=== PATIENT | male | born 1955 | race Caucasian/White ===

== ENCOUNTER 2019-02-09 14:18 | Inpatient (IN) | payer MEDICARE, MEDICAID ==
[~2019-02-09] VITALS: Ht 165.1 cm; Wt 83.0 kg
--- NOTE | 2019-02-09 14:22 | Emergency Room Report ---
History of Present Illness General Chief Complaint: Diarrhea Source: Patient Present Illness HPI Patient is a 64-year-old male brought in by EMS after increased abdominal distention as well as diarrhea. Patient reports having increased watery diarrhea with associated nausea. Patient had recently finished a course of antibiotics approximately 9 days ago. He reports having associated urgency with stooling without evident abdominal pain. Patient had previously been staying in a rehab facility. He has chronic neuropathy due to a cervical disc disease. Patient had been unable to take his diuretics for approximately1 1/2 weeks. He denies any current shortness of breath. He had prior history of multiple bypass surgeries as well as coronary artery disease. He was noted to have bilateral upper extremity and lower extremity numbness and weakness chronically Allergies: Coded Allergies: IBUPROFEN (Verified Allergy, Unknown, 02/09/19) Patient History Past Medical History: see triage record Reviewed Nursing Documentation: PMH: Agreed; PSxH: Agreed Nursing Documentation-PMH Past Medical History: No History, Except For Hx Cardiac Problems: Yes - IA, stents high cholesterol Hx Hypertension: Yes Hx Diabetes: Yes Review of Systems Constitutional: Reports: weakness Gastrointestinal: Reports: diarrhea, nausea Musculoskeletal: Reports: joint pain, muscle pain, muscle stiffness Skin: Reports: rash, dryness Neurological: Reports: numbness, paresthesia Endocrine: Reports: increased thirst Allergic: Reports: no symptoms Physical Exam Vital Signs Date Time Temp Pulse Resp B/P (MAP) Pulse Ox O2 Delivery O2 Flow Rate FiO2 02/09/19 13:57 98.4 72 17 125/67 (86) 98 Room Air General Appearance: alert, obese, Chronically Ill Head: normocephalic ENT: hearing grossly normal, normal pharynx Neck: limited range of motion, other - kyphotic Respiratory: chest non-tender, lungs clear, normal breath sounds, no respiratory distress, other - sternotomy scar Cardiovascular #1: normal peripheral pulses, regular rate, rhythm, edema - trace edema Gastrointestinal: normal inspection, soft Musculoskeletal: other - slight muscular atrophy to bilateral hands Neurologic: alert, oriented x3, responsive, motor weakness - bilateral upper extremity weakness Psychiatric: normal inspection Skin: other - healing ulcers to lower extremities Medical Decision Making Diagnostic Impression: Primary Impression: Diarrhea Additional Impressions: Dehydration Generalized weakness Diabetes CHF (congestive heart failure) Leukocytosis ER Course Patient presented for diarrhea. Differential diagnosis include was not limited to C. difficile colitis, gastroenteritis, GI bleed among others. Because of complexity of patient's case laboratory testing and imaging studies were ordered.Patient's laboratory testing was notable for elevated white blood count as well as mildly elevated BNP. Patient's BUN and creatinine was also noted to be somewhat elevated. Patient started on gentle IV hydration due to prior history of congestive heart failure. Patient was given p.o. Flagyl due to recent antibiotic use and elevated white blood count.I did attempt to contact patient's covering hospital group for possible transfer to [facility] however they do not respond. Patient was discussed with Dr. Cong Gifford for inpatient management due to panel physician Labs Test 02/09/19 14:45 White Blood Count 14.4 K/UL (4.8-10.8) Red Blood Count 5.69 M/UL (4.70-6.10) Hemoglobin 14.2 G/DL (14.2-18.0) Hematocrit 44.9 % (42.0-52.0) Mean Corpuscular Volume 79 FL (80-99) Mean Corpuscular Hemoglobin 24.9 PG (27.0-31.0) Mean Corpuscular Hemoglobin Concent 31.6 G/DL (32.0-36.0) Red Cell Distribution Width 18.3 % (11.6-14.8) Platelet Count 262 K/UL (150-450) Mean Platelet Volume 7.0 FL (6.5-10.1) Neutrophils (%) (Auto) % (45.0-75.0) Lymphocytes (%) (Auto) % (20.0-45.0) Monocytes (%) (Auto) % (1.0-10.0) Eosinophils (%) (Auto) % (0.0-3.0) Basophils (%) (Auto) % (0.0-2.0) Sodium Level 139 MMOL/L (136-145) Potassium Level 4.0 MMOL/L (3.5-5.1) Chloride Level 104 MMOL/L (98-107) Carbon Dioxide Level 25 MMOL/L (21-32) Anion Gap 10 mmol/L (5-15) Blood Urea Nitrogen 32 mg/dL (7-18) Creatinine 1.3 MG/DL (0.55-1.30) Estimat Glomerular Filtration Rate 55.2 mL/min (>60) Glucose Level 174 MG/DL (74-106) Calcium Level 9.4 MG/DL (8.5-10.1) Total Bilirubin 0.6 MG/DL (0.2-1.0) Aspartate Amino Transf (AST/SGOT) 37 U/L (15-37) Alanine Aminotransferase (ALT/SGPT) 48 U/L (12-78) Alkaline Phosphatase 167 U/L (46-116) Troponin I 0.001 ng/mL (0.000-0.056) Pro-B-Type Natriuretic Peptide 1788 pg/mL (0-125) Total Protein 7.8 G/DL (6.4-8.2) Albumin 3.2 G/DL (3.4-5.0) Globulin 4.6 g/dL Albumin/Globulin Ratio 0.7 (1.0-2.7) Lipase 291 U/L (73-393) Thyroid Stimulating Hormone (TSH) 0.725 uiU/mL (0.358-3.740) Last Vital Signs Date Time Temp Pulse Resp B/P (MAP) Pulse Ox O2 Delivery O2 Flow Rate FiO2 02/09/19 13:57 98.4 72 17 125/67 (86) 98 Room Air Status: improved Disposition: ADMITTED INPATIENT Condition: Stable Omar Paiz MD Feb 09, 2019 14:22
--- NOTE | 2019-02-09 14:25 | NUR ---
ED Nurse Note: pt brought in to ER by ambulance from home due to abdominal discomfort. pt emphasized it is not abdominal pain, but abdominal discomfort. pt reported that pt has N/D but no vomiting. pt aao x4 and non-ambulatory due to weakness on extremities. pt is on gown and library monitor.
[2019-02-09 14:53] LABS: HEMATOCRIT 44.9 % (42.0-52.0); HEMOGLOBIN 14.2 G/DL (14.2-18.0); MEAN CORPUSCULAR VOLUME 79 FL (80-99); PLATELET COUNT 262 K/UL (150-450); RED BLOOD COUNT 5.69 M/UL (4.70-6.10); RED CELL DISTRIBUTION WIDTH 18.3 % (11.6-14.8); WHITE BLOOD COUNT 14.4 K/UL (4.8-10.8)
[2019-02-09] MEDS ORDERED: metroNIDAZOLE 500mg tab ORAL ONE (15:00)
[2019-02-09 15:08] LABS: ANION GAP 10 mmol/L (5-15); BLOOD UREA NITROGEN 32 mg/dL (7-18); CALCIUM 9.4 MG/DL (8.5-10.1); CARBON DIOXIDE 25 MMOL/L (21-32); CHLORIDE 104 MMOL/L (98-107); CREATININE 1.3 MG/DL (0.55-1.30); SODIUM 139 MMOL/L (136-145)
[2019-02-09 15:11] VITALS: BP 125/67
--- NOTE | 2019-02-09 15:16 | NUR ---
HAND-OFF: Report given to DELLA Oconnor. stool and urine need to be collected.
--- NOTE | 2019-02-09 15:17 | NUR ---
ED Nurse Note: received report from Prince and assumed care, pt vss, nsr on monitoring manager, no sx resp distress, pt states he is unable to pee and doesn't have to use bathroom, pt advised to notify staff if need to go bathroom for urine/stool sample.
[2019-02-09 15:21] LABS: ALANINE AMINOTRANSFERASE 48 U/L (12-78); ALBUMIN 3.2 G/DL (3.4-5.0); ALBUMIN/GLOBULIN RATIO 0.7 (1.0-2.7); ALKALINE PHOSPHATASE 167 U/L (46-116); ASPARTATE AMINO TRANSFERASE 37 U/L (15-37); BILIRUBIN,TOTAL 0.6 MG/DL (0.2-1.0)
[2019-02-09] MEDS ORDERED: NS 250 ML IVPB ONE (15:30)
[2019-02-09] MEDS ORDERED: LIPITOR40 MG ORAL (15:36)
[2019-02-09] MEDS ORDERED: FUROSEMIDE40 MG ORAL (15:36)
[2019-02-09] MEDS ORDERED: HYDRALAZINE HCL25 M1 ORAL (15:36)
[2019-02-09] MEDS ORDERED: AMIODARONE HCL400 M1 ORAL (15:36)
[2019-02-09] MEDS ORDERED: CLONAZEPAM0.5 M1 PO (15:36)
[2019-02-09] MEDS ORDERED: LOSARTAN POTASS50 MG ORAL (15:36)
[2019-02-09] MEDS ORDERED: ASPIRIN81 MG ORAL (15:36)
[2019-02-09] MEDS ORDERED: MUCINEX100 MG PO (15:36)
[2019-02-09] MEDS ORDERED: BUPROPION XL300 MG ORAL (15:36)
--- NOTE | 2019-02-09 15:50 | NUR ---
ED Nurse Note: care endorsed to Alison Morrison.
--- NOTE | 2019-02-09 15:51 | NUR ---
ED Nurse Note: pt was assisted to sitting position for urination but pt was unable to provide urine. pt refused catheterization. pt stated "I have had diarrhea for last few days. I must be so dehydrated. I cannot pee or poop now."
[2019-02-09] MEDS ORDERED: LEXAPRO10 MG ORAL (15:56)
[2019-02-09] MEDS ORDERED: LIDOCAINE700 M1 TP (15:56)
[2019-02-09] MEDS ORDERED: regular insulin (15:56)
[2019-02-09] MEDS ORDERED: LOPRESSOR HCT1 EAC3 ORAL (15:56)
[2019-02-09] MEDS ORDERED: MELATONIN1 M1 SL (15:56)
[2019-02-09 16:11] VITALS: BP 134/74
--- NOTE | 2019-02-09 17:39 | NUR ---
ED Nurse Note: obtained urine and sent to the lab.
[2019-02-09 17:53] LABS: BILIRUBIN, URINE 1+ (NEGATIVE); GLUCOSE, URINE (UA) NEGATIVE (NEGATIVE); KETONES,URINE NEGATIVE (NEGATIVE); LEUKOCYTE ESTERASE ,URINE 1+ (NEGATIVE); NITRITE,URINE NEGATIVE (NEGATIVE); PH,URINE 5 (4.5-8.0); PROTEIN,URINE 3+ (NEGATIVE); UROBILINOGEN,URINE NORMAL MG/DL (0.0-1.0)
[2019-02-09 17:54] LABS: APPEARANCE,URINE SLIGHTLY CLOUDY; COLOR,URINE YELLOW
[2019-02-09 18:11] VITALS: BP 131/60
--- NOTE | 2019-02-09 19:26 | NUR ---
ED Nurse Note: report given to DELLA Dsouza
--- NOTE | 2019-02-09 19:30 | NUR ---
ED Nurse Note: CARE ENDORSED TO DELLA ALLEN
--- NOTE | 2019-02-09 19:30 | NUR ---
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
--- NOTE | 2019-02-09 19:31 | NUR ---
NURSE NOTES: Received report from DELLA Morrison.PAtient
--- NOTE | 2019-02-09 19:31 | NUR ---
NURSE NOTES: Patient stable,A&Ox4,agitated,tolerated r/air well,no c/o pain,no respiratory distress noted,SR on telemetry monitor,BS active in all quadrants,IV asymptomatic,intact on R AC 20 G SL,belongings list signed,will continue to monitor pt.
[2019-02-09 20:00] VITALS: BP 122/82
--- NOTE | 2019-02-09 20:30 | NUR ---
NURSE NOTES: Pt refused taking pictures of diabetic wound on bilateral legs,refused any labs and test to schedule for tomorrow.Charge nurse aware.
[2019-02-09] MEDS: HydrALAZINE 25mg tab ORAL SCH (22:00)
[2019-02-09] MEDS: metroNIDAZOLE 500mg tab ORAL SCH (22:45)
[2019-02-09] MEDS: Atorvastatin 20mg tab ORAL SCH (22:46)
[2019-02-09] MEDS: Levemir Flexpen SUBQ SCH (22:48)
[2019-02-10] VITALS: BP 129/66
[2019-02-10] MEDS: Acetaminophen 500mg (ES) tab ORAL PRN (00:20)
[2019-02-10 04:00] VITALS: BP 114/60
[2019-02-10] MEDS: NovoLOG Insulin Flexpen SUBQ SCH ×4 (05:59→20:57)
[2019-02-10] MEDS: metroNIDAZOLE 500mg tab ORAL SCH ×3 (06:00→21:08)
--- NOTE | 2019-02-10 06:26 | NUR ---
NURSE NOTES: BS 69,patient ate crackers,with orange juice and chocolate pudding.Will recheck BS again in 15 minutes
[2019-02-10] MEDS ORDERED: NovoLOG Insulin Flexpen SUBQ SCH ×2 (06:30)
--- NOTE | 2019-02-10 06:43 | NUR ---
NURSE NOTES: Patient's BS 99,patient stable,taking nap.
[2019-02-10 07:00] LABS: BASOPHILS % (AUTO) 0.6 % (0.0-2.0); EOSINOPHILS % (AUTO) 5.6 % (0.0-3.0); HEMATOCRIT 37.7 % (42.0-52.0); HEMOGLOBIN 12.1 G/DL (14.2-18.0); LYMPHOCYTES % (AUTO) 13.4 % (20.0-45.0); MEAN CORPUSCULAR VOLUME 78 FL (80-99); MONOCYTES % (AUTO) 8.3 % (1.0-10.0); PLATELET COUNT 241 K/UL (150-450); RED BLOOD COUNT 4.82 M/UL (4.70-6.10); RED CELL DISTRIBUTION WIDTH 17.7 % (11.6-14.8); WHITE BLOOD COUNT 9.4 K/UL (4.8-10.8)
--- NOTE | 2019-02-10 07:00 | NUR ---
NURSE NOTES: Received report from DELLA Sheffield. Pt in bed, awake, resting, no complaints of pain, no apparent distress noted, bed in lowest position, call light within reach, discussed plan of care with pt. 0715: Dr. Gifford to see pt, RN recommended probiotic for pt to Dr. Gifford as pt has been taking antibiotics x9 days according to ED note and was having diarrhea at home. Dr Gifford stated he will order.
--- NOTE | 2019-02-10 07:11 | NUR ---
HAND-OFF: Report given to DELLA Tejada.Patient stable,sleeping.
[2019-02-10 07:18] LABS: ALANINE AMINOTRANSFERASE 38 U/L (12-78); ALBUMIN 2.8 G/DL (3.4-5.0); ALBUMIN/GLOBULIN RATIO 0.7 (1.0-2.7); ALKALINE PHOSPHATASE 145 U/L (46-116); ANION GAP 8 mmol/L (5-15); ASPARTATE AMINO TRANSFERASE 30 U/L (15-37); BILIRUBIN,TOTAL 0.6 MG/DL (0.2-1.0); BLOOD UREA NITROGEN 32 mg/dL (7-18); CALCIUM 8.9 MG/DL (8.5-10.1); CARBON DIOXIDE 25 MMOL/L (21-32); CHLORIDE 104 MMOL/L (98-107); CREATININE 1.4 MG/DL (0.55-1.30); POTASSIUM 3.5 MMOL/L (3.5-5.1); SODIUM 137 MMOL/L (136-145)
[2019-02-10 08:00] VITALS: BP 127/62
[2019-02-10] MEDS: Amiodarone 200mg tab ORAL SCH ×2 (08:10→20:59)
[2019-02-10] MEDS: Furosemide 40mg tab ORAL SCH (08:11)
[2019-02-10] MEDS: Aspirin Baby 81mg ORAL SCH (08:12)
[2019-02-10] MEDS: Losartan 50mg tab ORAL SCH (08:14)
[2019-02-10] MEDS: Heparin 5000 units/ml inj SUBQ SCH ×2 (08:15→20:57)
[2019-02-10 12:00] VITALS: BP 112/55
[2019-02-10] MEDS: HydrALAZINE 25mg tab ORAL SCH ×2 (13:08→21:09)
--- NOTE | 2019-02-10 15:15 | History and Physical Report ---
DATE OF ADMISSION: 02/09/2019 CHIEF COMPLAINT: Diarrhea. HISTORY OF PRESENT ILLNESS: The patient is a 64-year-old male. He has a history of cervical radiculopathy, ischemic cardiomyopathy, status post CABG and stent, hypertension, hyperlipidemia, diabetic neuropathy, and diabetes. He presented from home with complaints of one day of severe diarrhea. According to the patient, he was well until the day of admission when he had multiple episodes of protracted watery diarrhea. Now, he was recently hospitalized at a rehabilitation center. He was on antibiotics for "infection" these were discontinued upon his discharge. He states he was initially told that he needed a complete two weeks of antibiotics, but he only had finished four and today states that the antibiotics were discontinued upon his release. Denies any fevers or chills. He has had no chest pain or shortness of breath. On evaluation in the emergency room, the patient was noted to have white count of 14,000, hemoglobin 14, hematocrit of 44. Natriuretic peptide level is slightly elevated at 1700. Urine had 5-10 wbc's. PAST MEDICAL HISTORY: As above. PAST SURGICAL HISTORY: As above. CURRENT MEDICATIONS: Reconciled and reviewed. ALLERGIES: Include ibuprofen and Prilosec. FAMILY HISTORY: Significant for heart disease. SOCIAL HISTORY: The patient is a smoker. No alcohol. No drugs. REVIEW OF SYSTEMS: GENERAL: No fevers or chills. HEENT: No headaches or visual changes. CARDIOPULMONARY: No chest pain or shortness of breath. GASTROINTESTINAL: Mild nausea. No vomiting. Positive diarrhea. No bright red blood per rectum. No melena or hematemesis. GENITOURINARY: No urgency or frequency. MUSCULOSKELETAL: No joint pain or swelling. NEUROLOGIC: No evidence of seizures. PHYSICAL EXAMINATION: VITAL SIGNS: Temperature 98 degrees, pulse 70, respirations 16, blood pressure 129/66. GENERAL: The patient is well developed, alert and oriented x4. NECK: Supple. HEART: Regular rate and rhythm. LUNGS: Clear. ABDOMEN: Soft, nontender, nondistended. EXTREMITIES: Without clubbing, cyanosis, or edema. LABORATORY DATA: UA showed 5-10 wbc's. White count was 14,000, hemoglobin 14, hematocrit 44, platelets of 262. Sodium 139, potassium was 4, chloride 104, bicarb 25, BUN 32, creatinine was 1.3. ASSESSMENT: This is a pleasant male with history of diabetes, hypertension, ischemic cardiomyopathy, admitted with diarrhea suspect gastroenteritis, possibly food poisoning, doubt C. diff. PLAN: Continue oral Flagyl. Await C. diff results from stool samples. If the patient has tolerates p.o., he has had no further diarrhea, he likely can be discharged home with symptomatic treatment for diarrhea. Plan and care has been discussed with the patient. He is in agreement. Cong Gifford M.D. DR: VON JOB#: [id number] CC:
[2019-02-10 16:00] VITALS: BP 104/47
--- NOTE | 2019-02-10 19:30 | NUR ---
NURSE NOTES: Received report from DELLA Suarez. Patient in bed alert and oriented able to make needs known. No complaints of pain at this time. No distress noted. Will continue to monitor.
--- NOTE | 2019-02-10 19:43 | NUR ---
HAND-OFF: Report given to DELLA Nye.
[2019-02-10 20:00] VITALS: BP 129/64
[2019-02-10] MEDS ORDERED: MUCINEX600 MG PO (20:38)
[2019-02-10] MEDS ORDERED: ATORVASTATIN CA20 MG ORAL (20:38)
[2019-02-10] MEDS ORDERED: ESCITALOPRAM OX20 MG ORAL (20:38)
[2019-02-10] MEDS ORDERED: ACETAMINOPHEN500 M3 ORAL (20:44)
[2019-02-10] MEDS ORDERED: METOPROLOL SUCC50 MG ORAL (20:44)
[2019-02-10] MEDS ORDERED: MUPIROCIN22 GM TOPIC (20:44)
[2019-02-10] MEDS ORDERED: BACLOFEN10 MG ORAL (20:44)
[2019-02-10] MEDS ORDERED: INSULIN LI100 UNIT/2 SQ (20:46)
[2019-02-10] MEDS: Atorvastatin 20mg tab ORAL SCH (20:56)
[2019-02-10] MEDS: Levemir Flexpen SUBQ SCH (20:58)
[2019-02-11] VITALS: BP 138/64
[2019-02-11 04:00] VITALS: BP 120/64
[2019-02-11] MEDS: metroNIDAZOLE 500mg tab ORAL SCH ×3 (05:22→21:44)
[2019-02-11] MEDS: HydrALAZINE 25mg tab ORAL SCH ×3 (05:22→22:14)
[2019-02-11] MEDS: NovoLOG Insulin Flexpen SUBQ SCH ×4 (05:22→21:47)
--- NOTE | 2019-02-11 07:12 | NUR ---
HAND-OFF: Report given to DELLA Cruz. Patient stable at hand off.
[2019-02-11 08:00] VITALS: BP 130/68
--- NOTE | 2019-02-11 08:02 | NUR ---
NURSE NOTES: Patient was awake and sitting at the chair, eating his breakfast. AxO 4. No s/s of distress, stated not having any pain. He's comfortable. Walker is next to him, call light within reach. Recommend him to call me if needed to ambulate. Right AC 18 SL is patent, no sign of redness or tenderness.
[2019-02-11] MEDS: Losartan 50mg tab ORAL SCH (09:37)
[2019-02-11] MEDS: Aspirin Baby 81mg ORAL SCH (09:37)
[2019-02-11] MEDS: Furosemide 40mg tab ORAL SCH (09:38)
[2019-02-11] MEDS: Heparin 5000 units/ml inj SUBQ SCH ×3 (09:40→21:46)
[2019-02-11] MEDS: Amiodarone 200mg tab ORAL SCH ×2 (09:50→21:44)
[2019-02-11 12:00] VITALS: BP 124/56
--- NOTE | 2019-02-11 12:59 | General Progress Note ---
Assessment/Plan Problem List: (1) Generalized weakness ICD Codes: R53.1 - Weakness SNOMED: 45125781 (2) Diabetes ICD Codes: E11.9 - Type 2 diabetes mellitus without complications SNOMED: 83691462 (3) CHF (congestive heart failure) ICD Codes: I50.9 - Heart failure, unspecified SNOMED: 31184253 (4) Dehydration ICD Codes: E86.0 - Dehydration SNOMED: 61792506 (5) Leukocytosis ICD Codes: D72.829 - Elevated white blood cell count, unspecified SNOMED: 524954737, 070490369 (6) Diarrhea ICD Codes: R19.7 - Diarrhea, unspecified SNOMED: 56783305 Status: stable, progressing Assessment/Plan: cont abx follow up cdiff pain rx dc planning Subjective ROS Limited/Unobtainable: No Constitutional: Reports: malaise, weakness HEENT: Reports: no symptoms Cardiovascular: Reports: no symptoms Respiratory: Reports: no symptoms Gastrointestinal/Abdominal: Reports: no symptoms Genitourinary: Reports: no symptoms Neurologic/Psychiatric: Reports: no symptoms Endocrine: Reports: no symptoms Hematologic/Lymphatic: Reports: no symptoms Allergies: Coded Allergies: IBUPROFEN (Verified Allergy, Unknown, 02/09/19) All Systems: reviewed and negative except above Subjective no events. w/o complaints. diarrhea better. concerned about home situation Objective Last 24 Hour Vital Signs Date Time Temp Pulse Resp B/P (MAP) Pulse Ox O2 Delivery O2 Flow Rate FiO2 02/11/19 12:00 97.9 59 20 124/56 (78) 95 02/11/19 12:00 97.9 59 20 124/56 (78) 95 02/11/19 09:37 130/68 02/11/19 08:20 70 02/11/19 08:20 Room Air 02/11/19 08:00 98.1 70 18 130/68 (88) 96 02/11/19 08:00 69 02/11/19 05:22 120/64 02/11/19 04:00 60 02/11/19 04:00 97.2 60 20 120/64 (82) 95 02/11/19 00:00 54 02/11/19 00:00 98.0 59 20 138/64 (88) 97 02/10/19 21:09 129/64 02/10/19 21:00 Room Air 02/10/19 20:00 97.0 57 20 129/64 (85) 97 02/10/19 20:00 57 02/10/19 16:00 99.5 51 20 104/47 (66) 95 02/10/19 15:35 51 02/10/19 13:08 112/55 Intake and Output 02/10/19 02/11/19 18:59 06:59 Intake Total 400 ml 140 ml Balance 400 ml 140 ml Intake Oral 400 ml 140 ml # Voids 3 3 Height (Feet): 5 Height (Inches): 5.00 Weight (Pounds): 185 General Appearance: WD/WN, alert Neck: supple Cardiovascular: normal peripheral pulses, normal rate, regular rhythm Respiratory/Chest: chest wall non-tender, lungs clear, normal breath sounds, no respiratory distress Abdomen: normal bowel sounds, non tender, soft, no organomegaly Edema: no edema noted Arm (L), no edema noted Arm (R), no edema noted Leg (L), no edema noted Leg (R), no edema noted Pedal (L), no edema noted Pedal (R), no edema noted Generalized Cong Gifford MD Feb 11, 2019 12:59
--- NOTE | 2019-02-11 13:09 | NUR ---
CASE MANAGEMENT:REVIEW 64 YR OLD MALE BIBA FROM HOME CC: ABDOMINAL PAIN W/NAUSEA AND DIARRHEA SI: DEHYDRATION. LEUKOCYTOSIS. CHF 98.4 72 17 125/67 98% ON RA WBC+14.4 BNP+1788 IS: FLAGYL PO 250CC NS BOLUS URINE CULTURE STOOL CULTURE STOOL FOR C-DIFF : TO TELEMETRY UNIT INTERQUAL CRITERIA MET
[2019-02-11 16:00] VITALS: BP 123/59
--- NOTE | 2019-02-11 19:12 | NUR ---
HAND-OFF: Report given at bedside with Eric Hernandez RN. Addendum: 02/11/19 at 1915 by Patti Johns RN Yakelin HULL last name.
--- NOTE | 2019-02-11 19:15 | NUR ---
HAND-OFF: Report given to DELLA Reyes.
--- NOTE | 2019-02-11 19:20 | NUR ---
NURSE NOTES: Received report from [facility] RN. Patient sitting on a chair at bedside, AAO X4 with no complaints of acute pain or discomfort noted at this time. kept clean, dry, and comfortable. IV line intact and patent SL. Placed on continuous cardiac monitoring per protocol. Able to go to the bathroom with staff assist and walker in hand. Safety precaution in place; siderails X3 up, call light within reach, bed in lowest position, brakes and alarm on at all times. Needs and wants anticipated and attended. Will continue to monitor.
[2019-02-11 20:00] VITALS: BP 128/56
[2019-02-11] MEDS: Atorvastatin 20mg tab ORAL SCH (21:44)
[2019-02-11] MEDS: Levemir Flexpen SUBQ SCH (21:46)
[2019-02-12] VITALS (7 sets, daily range): BP systolic 109–156; BP diastolic 62–85
--- NOTE | 2019-02-12 00:20 | NUR ---
NURSE NOTES: While doing rounds, found patient on the floor by another staff reporter. Bk, who was at room 218 at the time. Primary RNConsuelo Reyes notified and rushed into the room along with CN and other staff RNs. Assessed patients status and well-being, neuro check done and VS obtained (see VS record). Noted left forehead bump and minor abrasion on right side of face. Nursing Sup notified. Addendum: 02/12/19 at 0752 by ROLANDO FLOYD RN VS 156/80 P 79 R 19 T 98.0 O2 95%
--- NOTE | 2019-02-12 00:22 | NUR ---
NURSE NOTES: Neuro check initiated and VS obtained per policy protocol. Will continue to monitor
--- NOTE | 2019-02-12 00:25 | NUR ---
NURSE NOTES: Patient was put on temporary neck brace for immobilization. Called in staff to help move patient back to bed using log-rolling method to help minimize neck/spine movement while transferring. Talked with patient and reassured that everything will be done per policy protocol regarding the situation. Will continue to monitor.
--- NOTE | 2019-02-12 00:30 | NUR ---
NURSE NOTES: Called to Karon Gifford MD. regarding current situation. Left message to Caitlyn Guevara MD (on-call) for further orders. Awaiting call back and will continue to monitor. Addendum: 02/12/19 at 0755 by ROLANDO FLOYD RN VS 148/76 P 89 R 17 T 98.3 O2 96%
--- NOTE | 2019-02-12 01:50 | NUR ---
NURSE NOTES: Received call back from Caitlyn Guevara MD. New orders received and carried out. Will continue to monitor. Addendum: 02/12/19 at 0757 by ROLANDO FLOYD RN VS 146/76 P 85 R 19 T 97.6 O2 95%
--- NOTE | 2019-02-12 02:00 | NUR ---
NURSE NOTES: Patient went down to Radiology for CT. Portable director corporate sales placed and accompanied by RN.
--- NOTE | 2019-02-12 02:20 | NUR ---
NURSE NOTES: Patient came back from Radiology for ordered CT. Kept comfortable in bed with needs and wants anticipated and attended. Will continue to monitor.
[2019-02-12] MEDS: Acetaminophen 500mg (ES) tab ORAL PRN (03:15)
[2019-02-12] MEDS: HydrALAZINE 25mg tab ORAL SCH ×3 (06:00→22:35)
[2019-02-12] MEDS: NovoLOG Insulin Flexpen SUBQ SCH ×4 (06:30→21:00)
[2019-02-12] MEDS: metroNIDAZOLE 500mg tab ORAL SCH (06:30)
--- NOTE | 2019-02-12 07:48 | NUR ---
HAND-OFF: Report given to Pina Roberts RN. Patient in bed awake with no complaint of acute pain at this time. Endorsed plan of care.
--- NOTE | 2019-02-12 07:49 | NUR ---
NURSE NOTES: Report received from DELLA Reyes. Pt is resting in bed, A/Ox4. Breathing is even and unlabored in room air. No acute distress noted at this time. Patient fall last night and he complains of pain and unhappiness. Patient refused the heart monitor. Bed in lowest position with brake engaged and side rails up x2. Call light and side table placed within reach. Bed alarm on. Will continue to monitor.
--- NOTE | 2019-02-12 08:20 | General Progress Note ---
Assessment/Plan Problem List: (1) Generalized weakness ICD Codes: R53.1 - Weakness SNOMED: 15637618 (2) Diabetes ICD Codes: E11.9 - Type 2 diabetes mellitus without complications SNOMED: 10620484 (3) CHF (congestive heart failure) ICD Codes: I50.9 - Heart failure, unspecified SNOMED: 50342183 (4) Dehydration ICD Codes: E86.0 - Dehydration SNOMED: 57372328 (5) Leukocytosis ICD Codes: D72.829 - Elevated white blood cell count, unspecified SNOMED: 962168321, 761439940 (6) Diarrhea ICD Codes: R19.7 - Diarrhea, unspecified SNOMED: 77509251 Status: stable, progressing Assessment/Plan: follow up head and neck CT [facility] reading neg for bleed or fracture xray ands and shoulder left message with pmd . will try to transfer to [facility] for higher level of care(optho) POC d/w pt. he is an agreement Subjective ROS Limited/Unobtainable: No Constitutional: Reports: malaise, weakness HEENT: Reports: no symptoms Cardiovascular: Reports: no symptoms Respiratory: Reports: no symptoms Allergies: Coded Allergies: OMEPRAZOLE (Verified Allergy, Intermediate, Hives, 02/11/19) IBUPROFEN (Verified Allergy, Unknown, 02/09/19) Subjective was sitting up in chair and fell asleep.fell forward and hit left side of the head. has ecchymosis on sabianist and left eye. vision is "blurred" Objective Last 24 Hour Vital Signs Date Time Temp Pulse Resp B/P (MAP) Pulse Ox O2 Delivery O2 Flow Rate FiO2 02/12/19 04:00 97.6 59 19 156/85 (108) 95 02/12/19 04:00 70 02/12/19 00:30 98.2 95 Room Air 02/12/19 00:00 54 02/12/19 00:00 98.6 64 20 148/76 (100) 95 02/11/19 22:14 128/56 02/11/19 21:00 Room Air 02/11/19 20:00 61 02/11/19 20:00 98.5 59 18 128/56 (80) 96 02/11/19 16:00 97.7 51 18 123/59 (80) 97 02/11/19 15:23 60 02/11/19 14:00 124/56 02/11/19 12:00 97.9 59 20 124/56 (78) 95 02/11/19 12:00 59 02/11/19 12:00 97.9 59 20 124/56 (78) 95 02/11/19 09:37 130/68 02/11/19 08:20 70 02/11/19 08:20 Room Air Intake and Output 02/11/19 02/12/19 19:00 07:00 Intake Total 480 ml Output Total 400 ml Balance 80 ml Intake Oral 480 ml Output Urine Total 400 ml # Voids 1 3 Height (Feet): 5 Height (Inches): 5.00 Weight (Pounds): 183 General Appearance: WD/WN, alert, other - left eye ecchymosis EENT: PERRL/EOMI Neck: non-tender, normal alignment, supple Cardiovascular: normal peripheral pulses, normal rate, regular rhythm Respiratory/Chest: chest wall non-tender, lungs clear, normal breath sounds Abdomen: normal bowel sounds, non tender, soft, no organomegaly Edema: no edema noted Arm (L), no edema noted Arm (R), no edema noted Leg (L), no edema noted Leg (R), no edema noted Pedal (L), no edema noted Pedal (R), no edema noted Generalized Neurologic: hoist operator II-XII grossly normal, alert, oriented x 3, responsive Cong Gifford MD Feb 12, 2019 08:20
[2019-02-12] MEDS ORDERED: traMADol 50mg tab ORAL PRN ×2 (09:00→15:00)
[2019-02-12] MEDS: Heparin 5000 units/ml inj SUBQ SCH ×2 (09:00→21:00)
[2019-02-12] MEDS: Amiodarone 200mg tab ORAL SCH ×2 (09:09→21:00)
[2019-02-12] MEDS: Losartan 50mg tab ORAL SCH (09:09)
[2019-02-12] MEDS: Furosemide 40mg tab ORAL SCH (09:09)
[2019-02-12] MEDS: Aspirin Baby 81mg ORAL SCH (09:10)
--- NOTE | 2019-02-12 10:30 | NUR ---
Social Service Note SW attempted to meet with patient to complete a home safety evaluation. Patient would not address home care or possible home care needs upon discharge. Patient agitated and would only discuss his transfer to [facility]. SW allowed patient to vent feelings and concerns. SW attempted to address concerns and deescalate situation. Nursing supervisor wire rope fabrication notified and will meet with patient. Will continue to monitor.
--- NOTE | 2019-02-12 10:41 | NUR ---
NURSE NOTES: Patient insist to sit in a chair, out of bed. Explained to patient he is not in stable situation and he needs to stay in bed. He purposely throw the telemetry monitor out of bed and dropped the ice cup in bed.
--- NOTE | 2019-02-12 11:55 | Diagnostic Imaging Report ---
Indications: Headache, trauma Technique: Spiral acquisitions obtained through the brain. Angled axial and coronal 5 x 5 mm slices were reconstructed. Total dose length product 1544.99 mGycm. CTDI vol(s) 70.38 mGy. Dose reduction achieved using automated exposure control Comparison: None. Findings: There is a large left supraorbital scalp hematoma. No underlying calvarial fracture. No acute intracranial hemorrhage or edema. No mass effect nor midline shift. Normal sierra-white differentiation. Intact calvarium. Visualized orbits and sinuses are unremarkable. The mastoids are clear. There is a fracture deformity of the left nasal bone and possibly the nasal septum, with some underlying deep nasal mucosal thickening Impression: Evidence of left supraorbital scalp soft tissue injury Negative for acute intracranial bleed or mass effect Left-sided nasal bone fracture deformity, possibly acute. Correlate with clinical history and findings. This agrees with the preliminary interpretation provided overnight by [facility] teleradiology service. The CT scanner at [facility] is accredited by the [employer] and the scans are performed using protocols designed to limit radiation exposure to as low as reasonably achievable to attain images of sufficient resolution adequate for diagnostic evaluation.
--- NOTE | 2019-02-12 12:48 | NUR ---
CASE MANAGEMENT:REVIEW 02/12/19 SI: CHF. DEHYDRATION. LEUKOCYTOSIS 98.6 63 20 130/67 95% ON RA IS: ULTRAM PO Q6HRS PRN BACLOFEN PO Q8HRS AMIODARONE PO Q12 ASA PO QD LEXApro po qd lasix po qd cozaar po qd heparin sq q12 hydralazine po q8hrs : TELEMETRY STATUS
--- NOTE | 2019-02-12 12:53 | NUR ---
TRANSFER UPDATE DR GUTHRIE HAS PLACED PATIENT ON THE [facility] TRANSFER LIST FOR HIGHER LEVEL OF CARE
[2019-02-12] MEDS: HYDROcodone/Acetamin 10/325 tab ORAL PRN ×2 (13:53→22:43)
[2019-02-12] MEDS ORDERED: BuPROPion XL 150mg tab ORAL SCH (14:00)
--- NOTE | 2019-02-12 14:40 | NUR ---
NURSE NOTES: Right foot dressing has been changed.
--- NOTE | 2019-02-12 15:42 | NUR ---
NURSE NOTES: RN with Charge nurse cleaning the patient and changing the linen for the second time. At this moment patient stating that he doesn't want to get back to bed, he is not listening to nurse and charge nurse that he is not in stable condition and he needs to rest at bed. Contact to Nursing coffee supervisor and informed her.
--- NOTE | 2019-02-12 17:10 | Diagnostic Imaging Report ---
Indications: Pain, status post fall Technique: Two views of the right forearm Comparison: None Findings: No acute fractures. No dislocations. No radiopaque foreign body. There are degenerative changes of the first carpometacarpal joint. Impression: No acute bony trauma
--- NOTE | 2019-02-12 17:13 | Diagnostic Imaging Report ---
Indication: Trauma, pain Technique: 3 views right hand Comparison: None Findings: No acute fractures. No dislocations. There are degenerative changes of the first carpometacarpal joint. There is degenerative remodeling of the adjacent bones. Corticated osseous fragment adjacent to the trapezium, may reflect old injury. Impression: Degenerative changes and evidence of old trauma at the first carpometacarpal joint. No definite acute bony trauma
--- NOTE | 2019-02-12 17:14 | Diagnostic Imaging Report ---
Indication: Trauma, pain Technique: 3 views left hand Comparison: none Findings: No acute fractures. No dislocations. There are degenerative changes of the first carpometacarpal joint noted. Impression: No acute bony trauma Degenerative changes, as described
--- NOTE | 2019-02-12 17:16 | Diagnostic Imaging Report ---
Indications: Pain, status post fall Technique: Two views of the left humerus Comparison: None Findings: No acute fractures. No dislocations. Impression: Negative
--- NOTE | 2019-02-12 17:16 | Diagnostic Imaging Report ---
Indications: Pain, status post fall Technique: Two views of the left forearm Comparison: None Findings: No acute fractures. No dislocations. The joint spaces are preserved. Impression: Negative
--- NOTE | 2019-02-12 17:17 | Diagnostic Imaging Report ---
Indications: Pain, status post fall Technique: Two views of the right humerus Comparison: None Findings: No acute fractures. No dislocations. The joint spaces are preserved Impression: Negative
--- NOTE | 2019-02-12 19:15 | NUR ---
HAND-OFF: Report given to DELLA Krishnamurthy.
--- NOTE | 2019-02-12 19:20 | NUR ---
NURSE NOTES: Received report from DELLA Limon. Patient in chair awake showing no signs of acute distress. Respiration even and non labored on room air. No SOB noted. IV line patent and intact. Call light within reach. Bed in lowest position, wheels locked. All needs attended and met. Will continue to monitor.
--- NOTE | 2019-02-12 21:10 | Cardiology Report ---
APPROVED REPORT EKG Measurement Heart [id number] Sinus rhythm with 1st degree AV block Left axis deviation Abnormal ECG
[2019-02-12] MEDS: Atorvastatin 20mg tab ORAL SCH (22:36)
[2019-02-12] MEDS: Levemir Flexpen SUBQ SCH (22:38)
[2019-02-13] VITALS (7 sets, daily range): BP systolic 93–147; BP diastolic 55–78
[2019-02-13] MEDS: HydrALAZINE 25mg tab ORAL SCH ×3 (05:14→22:16)
[2019-02-13] MEDS: NovoLOG Insulin Flexpen SUBQ SCH ×4 (06:30→21:00)
--- NOTE | 2019-02-13 07:47 | NUR ---
HAND-OFF: Report given to DELLA Carlos.
--- NOTE | 2019-02-13 08:00 | NUR ---
NURSE NOTES: Received report from [facility] [place]. Continuous Cardiac monitoring in place per protocol and safety precaution in place at all times; side rails X3up, call light within reach, bed in lowest position, brakes and alarm on at all times. patient is close to nursing station for safety reasons. No complaints of acute pain or distress noted at this time. Needs and wants anticipated and attended. Will continue to monitor.
--- NOTE | 2019-02-13 08:50 | General Progress Note ---
Assessment/Plan Problem List: (1) Generalized weakness ICD Codes: R53.1 - Weakness SNOMED: 07045330 (2) Diabetes ICD Codes: E11.9 - Type 2 diabetes mellitus without complications SNOMED: 88303214 (3) CHF (congestive heart failure) ICD Codes: I50.9 - Heart failure, unspecified SNOMED: 54647312 (4) Dehydration ICD Codes: E86.0 - Dehydration SNOMED: 03733024 (5) Leukocytosis ICD Codes: D72.829 - Elevated white blood cell count, unspecified SNOMED: 382954539, 257135041 (6) Diarrhea ICD Codes: R19.7 - Diarrhea, unspecified SNOMED: 84574402 Status: stable, progressing Assessment/Plan: cont current rx await bed at [facility] will try to get ent eval. compliance stressed. pt instructed not to get out of bed without assistance Subjective ROS Limited/Unobtainable: No Constitutional: Reports: malaise, weakness HEENT: Reports: no symptoms Cardiovascular: Reports: no symptoms Respiratory: Reports: no symptoms Gastrointestinal/Abdominal: Reports: no symptoms Genitourinary: Reports: no symptoms Neurologic/Psychiatric: Reports: no symptoms Endocrine: Reports: no symptoms Hematologic/Lymphatic: Reports: no symptoms Allergies: Coded Allergies: OMEPRAZOLE (Verified Allergy, Intermediate, Hives, 02/11/19) IBUPROFEN (Verified Allergy, Unknown, 02/09/19) All Systems: reviewed and negative except above Subjective no new complaints. resting in bed. no headaches. vision is "less blurry" in the left eye. no bed at [facility] Objective Last 24 Hour Vital Signs Date Time Temp Pulse Resp B/P (MAP) Pulse Ox O2 Delivery O2 Flow Rate FiO2 02/13/19 07:44 96.8 69 20 142/73 (96) 100 02/13/19 05:14 147/78 02/13/19 04:00 63 02/13/19 04:00 97.8 65 18 147/78 (101) 96 02/13/19 00:00 61 02/13/19 00:00 97.4 63 18 121/64 (83) 94 02/12/19 23:13 99.1 02/12/19 22:35 133/73 02/12/19 21:00 Room Air 02/12/19 20:00 63 02/12/19 20:00 99.9 63 18 120/67 (84) 96 02/12/19 16:00 66 02/12/19 16:00 99.1 59 20 109/66 (80) 94 02/12/19 13:52 130/67 02/12/19 12:00 65 02/12/19 12:00 98.6 63 20 130/67 (88) 95 02/12/19 09:09 142/62 02/12/19 09:00 Room Air Intake and Output 02/12/19 02/13/19 19:00 07:00 Intake Total 240 ml 240 ml Balance 240 ml 240 ml Intake Oral 240 ml 240 ml # Voids 3 2 Height (Feet): 5 Height (Inches): 5.00 Weight (Pounds): 183 General Appearance: WD/WN, alert EENT: other - left eye ecchymosis Neck: supple Respiratory/Chest: chest wall non-tender, lungs clear, normal breath sounds Abdomen: normal bowel sounds, non tender, soft, no organomegaly Edema: no edema noted Arm (L), no edema noted Arm (R), no edema noted Leg (L), no edema noted Leg (R), no edema noted Pedal (L), no edema noted Pedal (R), no edema noted Generalized 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
[2019-02-13] MEDS: Heparin 5000 units/ml inj SUBQ SCH ×3 (09:00→21:00)
[2019-02-13] MEDS ORDERED: BuPROPion XL 150mg tab ORAL SCH (09:00)
[2019-02-13] MEDS: Aspirin Baby 81mg ORAL SCH (09:03)
[2019-02-13] MEDS: Furosemide 40mg tab ORAL SCH (09:04)
[2019-02-13] MEDS: Losartan 50mg tab ORAL SCH (09:04)
[2019-02-13] MEDS: Amiodarone 200mg tab ORAL SCH ×2 (09:05→22:18)
--- NOTE | 2019-02-13 11:23 | NUR ---
NURSE NOTES: patient transferred with his belonging to med-surg room 311 as ordered. RN to RN report done and all orderers transferred via [facility] per protocol
[2019-02-13] MEDS ORDERED: Acetaminophen 500mg (ES) tab ORAL PRN (11:30)
[2019-02-13] MEDS ORDERED: traMADol 50mg tab ORAL PRN (11:30)
--- NOTE | 2019-02-13 13:15 | NUR ---
NURSE NOTES: Report received from Julia HULL, rounds made. Patient sitting in high fowlers position in bed. Patient alert, oriented x4 calm. Reinforced fall/safety precautions, call light in reach. RAC heplock intact. Left orbit ecchymosis noted, skin intact. Right orbit small area ecchymosis noted, skin intact. CMS + to bilateral upper/lower extremities, skin warm, wiggles, pulses palpable, no NT. Hand grasps right 4/5 left 3/5. Pedal pushes, equal 4/5. Elbows, back, buttocks, pedals assessed, intact. Bilateral shins noted with kerlix, will remove and assess. Bed in lowest position, will continue to monitor.
--- NOTE | 2019-02-13 14:52 | NUR ---
CHARGE NURSE NOTES: Pt shouting, refusing the care of any nurse. calling that he will be coma state. refused to eat lunch @ noontime, claiming that he needs to be fed but can actively move his hand. Offered to feed him but still refused to eat. He wants me to check his blood sugar. I was about to check his blood sugar but he kept on talking & talking & wants me to look at him while he is talking & slapped my hand & covered his wrist so I won't be able to scan his wrist band. Too manipulative & verbally abusive. He kept on saying over & over again that he will di the hospital.
[2019-02-13] MEDS: HYDROcodone/Acetamin 10/325 tab ORAL PRN ×2 (14:58→22:27)
--- NOTE | 2019-02-13 15:35 | NUR ---
NURSE NOTES: Patient voiced that he will di hospital and that we need to look for another job because no one came in his room for thirty minutes. Informed patient that Dr. Nichols was in his room assessing him for a psych consultation during that time. Patient was upset that Dr. Gifford did not inform him of the decision for a psych consultation. Patient requesting another bedside glucose to be done due to previous reading was 88 mg/dl. Reassessed blood sugar 85 mg/dl at 1443. Patient is a total feed. RN fed patient lunch, HOB elevated. No s/s of hypoglycemia. Call light in reach, bed in lowest position.
--- NOTE | 2019-02-13 16:15 | NUR ---
NURSE NOTES: Patient incontinent of urine. Skin care provided. Patient requesting to be up out of bed in chair, due to worried about bed sores. Requires x2 assist, poor/weak transfer/pivot. Bilateral pedal, non-pitting edema noted. Patient voiced he is worried about infection, sanitized and changed gloves frequently with skin care, meals and repositioning. Will continue to monitor.
--- NOTE | 2019-02-13 18:05 | NUR ---
CHARGE NURSE NOTES: Pt continuosly banging his call light on the table then threw his dinner tray on the floor.
--- NOTE | 2019-02-13 19:30 | NUR ---
HAND-OFF: Report given to Deanna HILLIARD.
--- NOTE | 2019-02-13 19:30 | NUR ---
NURSE NOTES:Patient received from Suzi Felipe patient A/A/OX3 forgetful Patient setting in the chair . Patient stating he doesn't want to go back to bed patient worried about sores . Explained to patient .still refused to go back to bed. safety and fall precaution maintained . Patient requires x3 assist poor /weak when standing up with staff. Bilateral pedal . non pitting with kerlex patient refused kerlix change . .Patient denies any pain at this time . no s/s of distress noted. RAC g#20 H/L . Patent and intact.. call light within reach . bed in low position at all times . wheels locked bed alarm on .will continue to monitor.
[2019-02-13] MEDS: Levemir Flexpen SUBQ SCH (21:00)
[2019-02-13] MEDS: Atorvastatin 20mg tab ORAL SCH (22:17)
--- NOTE | 2019-02-13 23:00 | NUR ---
NURSE NOTES Patient requested Lasix 40 mg po one time dose tonight . Explained to patient scheduled at 09:00am daily .Patient still want the medication tonight and" states I never voided yet . Explained to patient the last he voided at 18:00 pm and he is incontinent of urine and we keep clean and left message to THU GREENBERG. DR. aminta Lake called back . stated will see in AM to discuss the medications . will continue to monitor.
[2019-02-14] VITALS (8 sets, daily range): BP systolic 79–159; BP diastolic 45–77
[2019-02-14] MEDS: HydrALAZINE 25mg tab ORAL SCH ×2 (06:04→13:33)
[2019-02-14] MEDS: NovoLOG Insulin Flexpen SUBQ SCH ×4 (06:05→21:43)
--- NOTE | 2019-02-14 07:00 | NUR ---
NURSE NOTES:Patient refused breakfast tray . stating this foods made of rubber and powder . I want toast , cream cheese and fruits left message to dietary services for additional tray.
--- NOTE | 2019-02-14 07:40 | NUR ---
HAND-OFF: Report given to Suzi FelipePatient in stable condition.
--- NOTE | 2019-02-14 07:45 | NUR ---
NURSE NOTES: Report received from Deanna HILLIARD, rounds made. Patient sitting in chair. Alert, oriented x4. Requesting to receive the confirmation from the fax sent to [facility], notified charge nurse of patient's request. Left orbit/Right orbit/Forehead ecchymosis remains unchanged. Skin remains intact. No distress on RA, denies need for pain medication at this time. Abdomen round, distended, firm. BS hypoactive, last BM 02/08, will administer laxative, will assess if patient is incontinent, and will perform bladder scan. Patient remains safe. Call light in reach, will continue to monitor.
--- NOTE | 2019-02-14 07:49 | NUR ---
CASE MANAGEMENT:REVIEW 02/14/19 SI: GENERALIZED WEAKNESS. DM. CHF DEHYDRATION. LEUKOCYTOSIS 97.2 67 20 115/64 97% ON RA IS: ASA PO QD WELBUTRIN PO QD LEXAPRO PO QD LASIX PO QD COZAAR PO QD AMIODARONE PO Q12 HEPARIN SQ Q12 BACLOFEN PO Q8HRS HYDRALAZINE PO Q8HR : MED/SURG STATUS 3 EAST TRANSFER TO [facility] FOR OPHTHALMOLOGY EVALUATION
--- NOTE | 2019-02-14 08:18 | NUR ---
NURSE NOTES:Patient Face sheets and physical and history fax to [facility] [phone] BY NESAS WILDER Charge nurse twice requested by NET.
--- NOTE | 2019-02-14 08:25 | NUR ---
CHARGE NURSE NOTES: Steven Smith called Deanna requesting to fax the pt's face sheet & H & P- I faxed it twice as requested.. FAX# [phone].
[2019-02-14] MEDS: Heparin 5000 units/ml inj SUBQ SCH ×2 (09:00→21:42)
--- NOTE | 2019-02-14 09:00 | Consultation ---
DATE OF CONSULTATION: 02/13/2019 CONSULTING PHYSICIAN: Pita Nichols M.D. REFERRING PHYSICIAN: Cong Gifford M.D. HISTORY OF PRESENT ILLNESS: The patient is a 64-year-old male with a history of multiple medical problems including diabetes, congestive heart failure, depression, and anxiety, who has been admitted to the hospital for medical stabilization. The patient apparently has diarrhea. The patient in the hospital had an incident of fall from chair to the floor. The patient has bruise on his face. He is angry, threatening, argumentative with the staff. The patient was yelling earlier today, angry and uncooperative with the nurse and was abusive towards that nurse. During my evaluation, the patient was very anxious, irritable, and angry. He stated that he has Lexapro in the morning and per nurse, he refused to take. The patient stated that he has been taking Wellbutrin and Lexapro for years and he is prescribed by his primary physician. He has not seen a psychiatrist and never believes in psychiatry since "I'm not crazy." PAST PSYCHIATRIC HISTORY: No psychiatric hospitalization. No suicide attempt. PAST MEDICAL HISTORY: Includes: 1. Cervical radiculopathy. 2. Ischemic cardiomyopathy, CABG and stent. 3. Hypertension. 4. Diabetic neuropathy. 5. Diabetes. 6. Hyperlipidemia. 7. Obesity. ALLERGIES: Ibuprofen and Prilosec. SUBSTANCE ABUSE HISTORY: The patient is a smoker. No history of alcohol use or illicit drug use. MENTAL STATUS EXAMINATION: The patient is obese. Alert and oriented x4. Cooperative with the examination. Mood was irritable. Affect was constricted and congruent with mood. Thought process was concrete. Thought content, no suicidal or homicidal ideation. ASSESSMENT: [place] I Major depressive disorder. [place] II Deferred. [place] III As above. [place] IV Low. [place] V 50. The patient has . PLAN: 1. The patient will be continued on Lexapro 15 mg in the morning and temazepam 50 mg at bedtime and Wellbutrin 150 mg in the morning. 2. Discussed with the patient hospital. 3. Provide the patient with reality orientation and supportive therapy. Pita Nichols M.D. DR: HAO JOB#: [id number] CC:
--- NOTE | 2019-02-14 09:21 | NUR ---
TRANSFER UPDATE CALLED [facility] AND SPOKE WITH HEMANT ~ THEY ARE WAITING TO CLEAR FINANCIAL'S [facility] T: [phone] *NURSING CAN CALL TRANSFER CENTER DAILY FOR UPDATE
--- NOTE | 2019-02-14 10:15 | NUR ---
NURSE NOTES: Medication profile reviewed with patient, verbalized understanding to each medication that was scheduled for 0900. Patient refused Heparin injection this AM. After scanning each medication, medications were placed in medicine cup together, patient refused to take PO medications unless they were administered separately and each medication was identified separately prior to administration.
[2019-02-14] MEDS: BuPROPion XL 150mg tab ORAL SCH ×2 (10:24→10:43)
[2019-02-14] MEDS: Amiodarone 200mg tab ORAL SCH ×3 (10:24→21:42)
[2019-02-14] MEDS: Aspirin Baby 81mg ORAL SCH ×2 (10:26→10:43)
[2019-02-14] MEDS: Losartan 50mg tab ORAL SCH ×2 (10:26→10:43)
[2019-02-14] MEDS: Furosemide 40mg tab ORAL SCH ×2 (10:26→10:42)
--- NOTE | 2019-02-14 10:45 | NUR ---
CHARGE NURSE NOTES: Pt claimed that he has no BM since Sunday. Dr Gifford called for orders.
--- NOTE | 2019-02-14 10:55 | NUR ---
NURSE NOTES: Received report from DELLA Archer. Patient a/o x4 sitting on the chair. Abdominal distention noted. Pt. mentioned voided around 4am after than he cannot void. Will do bladder scan. Denies any pain at this time. Bed in lowest position, call light within reach. Will continue to monitor.
--- NOTE | 2019-02-14 10:55 | NUR ---
HAND-OFF: Report given to Fernandez HULL. Endorsed POC.
[2019-02-14] MEDS ORDERED: Milk of Magnesia 30ml Ud ORAL PRN (11:00)
[2019-02-14] MEDS ORDERED: Fleet's Enema 133ml RECTAL PRN (11:00)
--- NOTE | 2019-02-14 11:07 | NUR ---
NURSE NOTES: Patient c/o difficulty of urination. Bladder scan was done (R: 949 ml). Dr. Gifford was notified and ordered adames catheter and flomax 0.4mg daily. Noted and carried out.
[2019-02-14] MEDS ORDERED: Tamsulosin 0.4mg cap ORAL SCH (11:15)
--- NOTE | 2019-02-14 11:20 | NUR ---
NURSE NOTES: Patient refused insertion adames catheter. Explained to pt regarding importance of adames catheter but pt refused.
--- NOTE | 2019-02-14 11:40 | NUR ---
NURSE NOTES: Dr. Gifford ordered enema. Offered enema but pt refused.
[2019-02-14] MEDS: Docusate 250mg cap ORAL SCH ×2 (11:48→18:16)
[2019-02-14] MEDS: HYDROcodone/Acetamin 10/325 tab ORAL PRN ×2 (12:06→18:16)
--- NOTE | 2019-02-14 13:47 | NUR ---
NURSE NOTES: Patient stat he slept on the chair during the night. Recommended pt need to go back to bad and turn every 2 hours. But patient refused going back to bed. Pt wants to have a sit on the chair.
--- NOTE | 2019-02-14 14:15 | NUR ---
NURSE NOTES: Offered putting pillow under his back and butts for preventing skin injury. Patient refused.
--- NOTE | 2019-02-14 14:34 | NUR ---
NURSE NOTES: Offered put some ointment to prevent to get pressure ulcer of buttock. Pt allowed. Triad ointment was applied on his buttock.
--- NOTE | 2019-02-14 14:55 | NUR ---
CHARGE NURSE NOTES: Mariela & Lacey VIEYRA has been constantly in the room, attending all his needs, fed him that takes 1 hour but heard him reporting to the nursing supervisor cleaning and annealing that "I haven't seen any nurse for quite some time" RN Fernandez, & Lacey was just off from the room for 3 minutes. We are assisting him to reposition in the chair. We recommended him to help him back to bed but he refused.
--- NOTE | 2019-02-14 15:50 | NUR ---
CHARGE NURSE NOTES: [facility] transfer center called & followed up about the transfer. Pt is cleared financially but still waiting for a bed.
--- NOTE | 2019-02-14 16:02 | NUR ---
CHARGE NURSE NOTES: LOW bp NOTED 79/45 mmHg, checked twice, HR 70, RR 18, O2 Sat= 92%; relayed to Dr Gifford.
--- NOTE | 2019-02-14 16:20 | NUR ---
NURSE NOTES: Transferred him to bed with 2 assist staff. Will f/u BP.
--- NOTE | 2019-02-14 16:35 | General Progress Note ---
Assessment/Plan Problem List: (1) Generalized weakness ICD Codes: R53.1 - Weakness SNOMED: 96258011 (2) Diabetes ICD Codes: E11.9 - Type 2 diabetes mellitus without complications SNOMED: 71966475 (3) CHF (congestive heart failure) ICD Codes: I50.9 - Heart failure, unspecified SNOMED: 35389007 (4) Dehydration ICD Codes: E86.0 - Dehydration SNOMED: 48325937 (5) Leukocytosis ICD Codes: D72.829 - Elevated white blood cell count, unspecified SNOMED: 394280443, 730630501 (6) Diarrhea ICD Codes: R19.7 - Diarrhea, unspecified SNOMED: 60326627 Status: stable, progressing Assessment/Plan: cont current rx await bed at [facility] will try to get ent eval- message left with dr amezquita compliance stressed. pt instructed not to get out of bed without assistance Subjective ROS Limited/Unobtainable: No Constitutional: Reports: malaise, weakness HEENT: Reports: no symptoms Cardiovascular: Reports: no symptoms Respiratory: Reports: no symptoms Gastrointestinal/Abdominal: Reports: no symptoms Genitourinary: Reports: no symptoms Neurologic/Psychiatric: Reports: no symptoms Endocrine: Reports: no symptoms Hematologic/Lymphatic: Reports: no symptoms Allergies: Coded Allergies: OMEPRAZOLE (Verified Allergy, Intermediate, Hives, 02/11/19) IBUPROFEN (Verified Allergy, Unknown, 02/09/19) All Systems: reviewed and negative except above Subjective no new complaints. resting in bed. no headaches. vision is seems "a little better." Objective Last 24 Hour Vital Signs Date Time Temp Pulse Resp B/P (MAP) Pulse Ox O2 Delivery O2 Flow Rate FiO2 02/14/19 13:33 148/69 02/14/19 12:00 97.9 67 19 148/69 (95) 97 02/14/19 10:43 159/77 02/14/19 09:00 Room Air 02/14/19 08:00 97.3 64 20 159/77 (104) 98 02/14/19 06:04 115/64 02/14/19 04:00 97.2 67 20 115/64 (81) 97 02/14/19 00:00 98.4 65 20 121/66 (84) 96 02/13/19 22:57 98.2 02/13/19 22:16 138/75 02/13/19 21:00 Room Air 02/13/19 20:00 98.2 67 20 138/75 (96) 98 67 Intake and Output 02/13/19 02/14/19 19:00 07:00 Intake Total 400 ml 620 ml Output Total 550 ml Balance 400 ml 70 ml Intake Oral 400 ml 620 ml Output Urine Total 550 ml # Voids 3 2 Height (Feet): 5 Height (Inches): 5.00 Weight (Pounds): 183 General Appearance: WD/WN, alert, obese EENT: PERRL/EOMI Neck: non-tender, normal alignment Cardiovascular: normal peripheral pulses, normal rate, regular rhythm Respiratory/Chest: chest wall non-tender, lungs clear, normal breath sounds, no respiratory distress Abdomen: normal bowel sounds, non tender, soft, no organomegaly Edema: no edema noted Arm (L), no edema noted Arm (R), no edema noted Leg (L), no edema noted Leg (R), no edema noted Pedal (L), no edema noted Pedal (R), no edema noted Generalized Cong Gifford MD Feb 14, 2019 16:35
--- NOTE | 2019-02-14 16:58 | Diagnostic Imaging Report ---
Indication: Shortness of breath Technique: One view of the chest Comparison: none Findings: Inspiration is suboptimal. Basilar atelectatic changes are present. The heart is enlarged. There is mild interstitial congestion. There are median sternotomy sutures Impression: Cardiomegaly with evidence of mild interstitial congestion Hypoventilatory exam with bibasilar atelectatic changes
[2019-02-14 17:06] LABS: BASOPHILS % (AUTO) 0.9 % (0.0-2.0); EOSINOPHILS % (AUTO) 2.8 % (0.0-3.0); HEMATOCRIT 42.2 % (42.0-52.0); HEMOGLOBIN 13.5 G/DL (14.2-18.0); LYMPHOCYTES % (AUTO) 11.6 % (20.0-45.0); MEAN CORPUSCULAR VOLUME 77 FL (80-99); MONOCYTES % (AUTO) 10.3 % (1.0-10.0); NEUTROPHILS % (AUTO) 74.5 % (45.0-75.0); PLATELET COUNT 235 K/UL (150-450); RED CELL DISTRIBUTION WIDTH 17.3 % (11.6-14.8); WHITE BLOOD COUNT 9.8 K/UL (4.8-10.8)
--- NOTE | 2019-02-14 17:15 | Consultation ---
History of Present Illness General Date patient seen: Feb 14, 2019 Time patient seen: 17:05 Chief Complaint: Nasal fractureBlack and blue eyeleg infectionDMCHF Referring physician: Dr. Mccarthy Reason for Consultation: Nasal fracture on imaging after pt. fell. Present Illness HPI Pt. was in the hospital for leg infection, passed out and hit his head. On imaging, nasal fracture and in person left eye black and blue along with contusion left forehead. Pt. is aboel to breathe via both nostrils. Allergies: Coded Allergies: OMEPRAZOLE (Verified Allergy, Intermediate, Hives, 02/11/19) IBUPROFEN (Verified Allergy, Unknown, 02/09/19) Medication History Scheduled Amiodarone Hcl* (Amiodarone Hcl*), 200 MG ORAL EVERY 12 HOURS, (Reported) Aspirin* (Aspirin*), 81 MG ORAL DAILY, (Reported) Atorvastatin Calcium* (Atorvastatin Calcium*), 20 MG ORAL BEDTIME, (Reported) Baclofen* (Baclofen*), 10 MG ORAL TWICE A DAY, (Reported) Bupropion Hcl* (Wellbutrin*), 150 MG ORAL DAILY, (Reported) Escitalopram Oxalate (Escitalopram Oxalate*), 20 MG ORAL DAILY, (Reported) Furosemide* (Lasix*), 40 MG ORAL DAILY, (Reported) Hydralazine Hcl* (Hydralazine Hcl*), 25 MG ORAL BID, (Reported) Losartan Potassium* (Losartan Potassium*), 100 MG ORAL DAILY, (Reported) Metoprolol Succinate* (Metoprolol Succinate*), 50 MG ORAL BID, (Reported) Scheduled PRN Acetaminophen* (Acetaminophen Extra Strength*), 500 MG ORAL Q6H PRN for For Pain , (Reported) Clonazepam (Clonazepam), 0.5 MG PO for For Anxiety, (Reported) Guaifenesin (Mucinex), 600 MG PO BID PRN for For Cough, (Reported) Lidocaine (Lidocaine), 700 MG TP for For Pain, (Reported) Mupirocin* (Mupirocin*), 1 APPLIC TOPIC THREE TIMES A DAY PRN for Itching, ( Reported) Miscellaneous Medications Insulin Lispro (Insulin Lispro Kwikpen U-100), 100 UNIT SQ, (Reported) Discontinued Medications Atorvastatin Calcium* (Lipitor*), 40 MG ORAL BEDTIME, (Reported) Discontinued Reason: Prescription changed Escitalopram Oxalate* (Lexapro*), 15 MG ORAL DAILY, (Reported) Discontinued Reason: Prescription changed Guaifenesin (Mucinex), 100 MG PO, (Reported) Discontinued Reason: Prescription changed Melatonin (Melatonin), 1 MG SL BEDTIME PRN for Insomnia, (Reported) Discontinued Reason: Pt stopped taking med Metoprolol/Hydrochlorothiazide (Lopressor Hct 50-25 Tablet), 1 TAB ORAL DAILY, ( Reported) Discontinued Reason: Medication dose changed [regular insulin], (Reported) Discontinued Reason: Prescription changed Patient History History Provided By: Patient Healthcare decision maker Resuscitation status Full Code Advanced Directive on File No Social History Social History: (1) Generalized weakness (2) Diabetes (3) CHF (congestive heart failure) (4) Dehydration (5) Diarrhea (6) Leukocytosis Review of Systems Eye: Reports: blurred vision - left eye per pt ENT: Reports: no symptoms Physical Exam General Appearance: mild distress, other - anxious about living situation HEENT: other - Nose-straight inside and out with good airway. Small contusion on nose. Neck: non-tender Extremities: other - dressing on infected right leg Skin Exam: other - left eye ecchymosis. left forhead tender bump. Last 24 Hour Vital Signs Date Time Temp Pulse Resp B/P (MAP) Pulse Ox O2 Delivery O2 Flow Rate FiO2 02/14/19 16:20 90/57 (68) 02/14/19 16:00 97.7 71 19 79/45 (56) 92 02/14/19 13:33 148/69 02/14/19 12:00 97.9 67 19 148/69 (95) 97 02/14/19 10:43 159/77 02/14/19 09:00 Room Air 02/14/19 08:00 97.3 64 20 159/77 (104) 98 02/14/19 06:04 115/64 02/14/19 04:00 97.2 67 20 115/64 (81) 97 02/14/19 00:00 98.4 65 20 121/66 (84) 96 02/13/19 22:57 98.2 02/13/19 22:16 138/75 02/13/19 21:00 Room Air 02/13/19 20:00 98.2 67 20 138/75 (96) 98 67 Intake and Output 02/13/19 02/14/19 19:00 07:00 Intake Total 400 ml 620 ml Output Total 550 ml Balance 400 ml 70 ml Intake Oral 400 ml 620 ml Output Urine Total 550 ml # Voids 3 2 Laboratory Tests Test 02/14/19 16:50 White Blood Count Pending Red Blood Count Pending Hemoglobin Pending Hematocrit Pending Mean Corpuscular Volume Pending Mean Corpuscular Hemoglobin Pending Mean Corpuscular Hemoglobin Concent Pending Red Cell Distribution Width Pending Platelet Count Pending Mean Platelet Volume Pending Neutrophils (%) (Auto) Pending Lymphocytes (%) (Auto) Pending Monocytes (%) (Auto) Pending Eosinophils (%) (Auto) Pending Basophils (%) (Auto) Pending Troponin I Pending Pro-B-Type Natriuretic Peptide Pending Height (Feet): 5 Height (Inches): 5.00 Weight (Pounds): 183 Medications Current Medications Medications (Trade) Dose Ordered Sig/Martinez Route PRN Reason Start Time Stop Time Status Last Admin Dose Admin Acetaminophen (Tylenol) 500 mg Q4H PRN ORAL Mild Pain/Temp > 100.5 02/13/19 11:30 03/11/19 11:29 Acetaminophen/ Hydrocodone Bitart (Hankins 10/325) 1 tab Q4H PRN ORAL Severe Pain (Pain Scale 7-10) 02/13/19 11:30 02/19/19 11:29 02/14/19 12:06 Amiodarone HCl (Cordarone) 200 mg EVERY 12 HOURS ORAL 02/13/19 21:00 03/12/19 08:59 02/14/19 10:42 Aspirin (ASA) 81 mg DAILY ORAL 02/14/19 09:00 03/12/19 08:59 02/14/19 10:43 Atorvastatin Calcium (Lipitor) 40 mg BEDTIME ORAL 02/13/19 21:00 03/11/19 21:59 02/13/19 22:17 Baclofen (Lioresal) 10 mg Q8HR ORAL 02/13/19 14:00 03/14/19 05:59 02/14/19 13:33 Bupropion HCl (Wellbutrin XL) 150 mg DAILY ORAL 02/14/19 09:00 03/15/19 08:59 02/14/19 10:43 Clonidine HCl (Catapres Tab) 0.1 mg Q4H PRN ORAL SBP > 160mmHg 02/13/19 11:30 03/11/19 11:29 Dextrose (Dextrose 50%) 25 ml Q30M PRN IV Hypoglycemia 02/13/19 11:45 03/11/19 21:44 Dextrose (Dextrose 50%) 50 ml Q30M PRN IV Hypoglycemia 02/13/19 11:45 03/11/19 21:44 Docusate Sodium (Colace) 250 mg BID ORAL 02/14/19 11:00 03/16/19 10:59 02/14/19 11:48 Escitalopram Oxalate (Lexapro) 15 mg DAILY ORAL 02/14/19 09:00 03/12/19 08:59 02/14/19 10:43 Furosemide (Lasix) 40 mg DAILY ORAL 02/14/19 09:00 03/12/19 08:59 02/14/19 10:42 Heparin Sodium (Porcine) (Heparin 5000 units/ml) 5,000 units EVERY 12 HOURS SUBQ 02/13/19 21:00 03/12/19 08:59 Hydralazine HCl (Apresoline) 25 mg EVERY 8 HOURS ORAL 02/13/19 14:00 03/11/19 21:59 02/14/19 13:33 Insulin Aspart (NovoLOG) BEFORE MEALS AND HS SUBQ 02/13/19 11:30 03/12/19 06:29 02/14/19 13:34 Insulin Detemir (Levemir) 12 units BEDTIME SUBQ 02/13/19 21:00 03/11/19 22:59 Losartan Potassium (Cozaar) 100 mg DAILY ORAL 02/14/19 09:00 03/12/19 08:59 02/14/19 10:43 Magnesium Hydroxide (Mom) 30 ml TIDPRN PRN ORAL Constipation 02/14/19 11:00 03/16/19 10:59 02/14/19 11:48 Ondansetron HCl (Zofran) 4 mg Q6H PRN IVP Nausea & Vomiting 02/13/19 11:30 03/11/19 11:29 Sodium Phosphate (Fleet's Sodium Phosl Enema) 133 ml DAILYPRN PRN RECTAL CONSTIPATION 02/14/19 11:00 03/16/19 10:59 Tamsulosin HCl (Flomax) 0.4 mg DAILY ORAL 02/14/19 11:15 03/16/19 11:14 02/14/19 11:46 Temazepam (Restoril) 15 mg BEDTIME ORAL 02/13/19 21:00 02/16/19 21:59 02/13/19 22:18 Tramadol HCl (Ultram) 100 mg Q6H PRN ORAL Moderate Pain (Pain Scale 4-6) 02/13/19 11:30 02/19/19 11:29 Assessment/Plan Problem List: (1) Diabetes ICD Codes: E11.9 - Type 2 diabetes mellitus without complications SNOMED: 34790085 (2) CHF (congestive heart failure) ICD Codes: I50.9 - Heart failure, unspecified SNOMED: 15486734 (3) Dehydration ICD Codes: E86.0 - Dehydration SNOMED: 87710375 (4) Diarrhea ICD Codes: R19.7 - Diarrhea, unspecified SNOMED: 86811951 (5) Leukocytosis ICD Codes: D72.829 - Elevated white blood cell count, unspecified SNOMED: 957385750, 857474694 (6) Contusion of head ICD Codes: S00.93XA - Contusion of unspecified part of head, initial encounter SNOMED: 504690678 (7) Nasal bone fracture ICD Codes: S02.2XXA - Fracture of nasal bones, initial encounter for closed fracture SNOMED: 235890400 (8) Nasal bone fracture ICD Codes: S02.2XXA - Fracture of nasal bones, initial encounter for closed fracture SNOMED: 487819391 (9) Generalized weakness ICD Codes: R53.1 - Weakness SNOMED: 33839835 Status: stable Assessment/Plan: Nose: no treatment-if new fracture is non displaced and is not a sig. cosmetic or functional (airway obstruction) issue. Ecchymosis should resolve over time-may be left with some discoloration. I do suggest an Industrial Management Teacher check his vision for his left eye. Paresh Greene MD Feb 14, 2019 17:15
--- NOTE | 2019-02-14 17:35 | NUR ---
CHARGE NURSE NOTES: dR Jensen updated w/ all the test results & latest BP of 123/64. No order.
--- NOTE | 2019-02-14 19:25 | NUR ---
NURSE NOTES: Pt received in bed at lowest position, call light within reach, able to make needs known, no c/o pain, pt asking about going to [facility] and asking to be put in the chair. [facility] called about receiving the patient and Dr. Balta schneider to send the patient.
--- NOTE | 2019-02-14 19:45 | NUR ---
HAND-OFF: Report given to DELLA Huerta. Patient is stable. Endorsed POC.
--- NOTE | 2019-02-14 20:45 | NUR ---
NURSE NOTES: Called the [facility] ambulance and pick out hand is 10pm
[2019-02-14] MEDS: Levemir Flexpen SUBQ SCH (21:42)
[2019-02-14] MEDS: Atorvastatin 20mg tab ORAL SCH (21:48)
--- NOTE | 2019-02-14 21:56 | NUR ---
NURSE NOTES: Pt refused the amiodarone medication, explained the risks and benefits but pt states he knows the medication is for his heart and he normally takes it one time a day in the morning, and that he talked to his multimedia specialist about it being reduced.
--- NOTE | 2019-02-14 22:03 | NUR ---
NURSE NOTES: Called [facility] and spoke with Awais, gave report on patient and the ETA.
--- NOTE | 2019-02-15 | NUR ---
NURSE NOTES: [facility] arrived, gave report and they took the patient to [facility]. Belongings list signed and pt left with belongings.
--- NOTE | 2019-02-15 00:30 | Progress Note ---
DATE: 02/14/2019 HISTORY OF PRESENT ILLNESS: The patient is presenting with irritable mood. He continues to be disruptive, has poor insight and judgment. The patient continues to complain of about the fall, ruminated about how it could have been prevented The patient has poor insight and judgment. He is calmer today. MENTAL STATUS EXAMINATION: The patient is alert and oriented times self, place, and situation. Mood is irritable. Affect is constricted. Congruent with mood. Thought process is linear. Thought content, no suicidal or homicidal ideation. ASSESSMENT: 1. Major depressive disorder. 2. Cluster B personality. PLAN: 1. We will continue the Lexapro. 2. Continue Wellbutrin. 3. Provide the patient with reality orientation and supportive therapy. Pita Nichols M.D. DR: Jairo JOB#: [id number] CC:
--- NOTE | 2019-02-15 09:19 | Diagnostic Imaging Report ---
APPROVED REPORT CPT Code: 32783 Present Symptoms Comments: BILATERAL LEGS PAIN. BILATERAL: Imaging reveals a patent deep venous system bilaterally. There is no evidence of thrombus within the femoral, popliteal or tibial segments. The greater saphenous veins are also within normal limits. Doppler indicates normal spontaneous flow within these segments.
--- NOTE | 2019-02-16 20:03 | Discharge Summary ---
Discharge Summary Discharge Summary _ DATE OF ADMISSION: 02/09/2019 DATE OF DISCHARGE: 02/14/2019 DISCHARGED BY: Dr. Gifford REASON FOR ADMISSION: 64 years old male with past medical history of cervical radiculopathy, ischemic cardiomyopathy, status post CABG and stent placement, hypertension, hyperlipidemia, diabetes mellitus, diabetic neuropathy, presented to emergency department from home with complaint of severe diarrhea. Patient had multiple episodes of protracted watery diarrhea for 1 day. Patient was recently hospitalized at rehabilitation center. He was on antibiotic which discontinued prior to discharge home. Apparently he was initially told that he need to complete 2 weeks of antibiotic , but he only had 4 days of antibiotics . Patient denied fever and chills. Patient denied chest pain and shortness of breath. Upon evaluation in emergency department patient noted to have leukocytosis with WBC 14, stable hemoglobin and hematocrit. Pro-BNP elevated 1700. Urinalysis revealed pyuria pyuria. Stable electrolytes. BUN 32, creatinine 1.3. Patient subsequently was admitted for further management. CONSULTANTS: ENT specialist Dr. Greene psychiatrist [facility]SE: Patient admitted and started on oral Flagyl. Symptomatic treatment for diarrhea provided. Stool for C. difficile was ordered but diarrhea stopped. Patient was able to tolerate oral fluids. No further diarrhea. Diarrhea was possibly due to episode of gastroenteritis versus food poisoning. Urine culture revealed mixed gram-positive organisms. Patient was sitting in the chair and fell asleep. He fell forward and hit left side of his head. Upon physical examination he had ecchymosis on baptism and left eye vision was blurred. Subsequently patient undergone CT of the head, which revealed no evidence of acute intracranial bleeding or mass-effect. It showed evidence of left supraorbital scalp soft tissue injury with large left supraorbital scalp hematoma. Left-sided nasal bone fracture deformity noted, possible acute. X-ray of bilateral hands revealed no evidence of acute fracture. X-ray of bilateral humerus revealed no evidence of acute fracture. No dislocation. X-ray of bilateral forearms also revealed no acute fracture, no dislocation. Fall precautions were maintained. Patient instructed not to get out of bed without assistance. Venous duplex bilateral lower extremity revealed no evidence of acute DVT. Chest x-ray demonstrated cardiomegaly with evidence of mild interstitial congestion ENT specialist seen and evaluated patient. Per ENT specialist, no treatment was necessary at this time unless fracture displaced or significant functional issue/airway obstruction. Ecchymosis will resolve over time, but patient may be left with some discoloration. ENT recommended ophthalmology evaluation for left eye vision. Home medications were continued. Blood pressure was stable with the current antihypertensive regimen. Patient was on daily Lasix with close monitoring of volumes and cardiorenal parameters. proBNP down to 487 prior to discharge. Serial troponin x2 were negative. DVT prophylaxis provided. Blood sugar was managed with long-acting Levemir and sliding scale of insulin as needed. Leukocytosis resolved on the second day. No fevers. Psychiatry seen and evaluated patient. Reality orientation and supportive therapy provided. Patient was continued on Lexapro and Wellbutrin Patient was placed on waiting list for transfer to [facility]. Bed became available on 02/14. Patient was stable for transfer via ambulance to [facility] for further management FINAL DIAGNOSES: Leukocytosis -resolved Diarrhea probably due to episode of gastroenteritis or food poisoning resolved Dehydration CHF Diabetes mellitus Contusion of head Nasal bone fracture Major depressive disorder Cluster B personality DISCHARGE MEDICATIONS: See Medication Reconciliation list. DISCHARGE INSTRUCTIONS: Patient was discharged to [facility] for further management I have been assigned to dictate discharge summary for this account. I was not involved in the patient's management. Radha Bowles NP Feb 16, 2019 20:03
== END 2019-02-14 23:50 | disposition short-term general hospital (02) | DRG 392 ==
LOC: EDBD 14:18 → EMR 15:29 → EDBEDREQ 16:34 → 2E 19:36 → 3E 02-13 11:12
DX: K52.9 Noninfective gastroenteritis and colitis, unspecified (principal); T62.91XA Toxic effect of unspecified noxious substance eaten as food, accidental (unintentional), initial encounter; I25.10 Atherosclerotic heart disease of native coronary artery without angina pectoris; I11.0 Hypertensive heart disease with heart failure; R53.1 Weakness; I25.5 Ischemic cardiomyopathy; Z95.1 Presence of aortocoronary bypass graft; Z95.5 Presence of coronary angioplasty implant and graft; S00.83XA Contusion of other part of head, initial encounter; S02.2XXA Fracture of nasal bones, initial encounter for closed fracture; H53.8 Other visual disturbances; W07.XXXA Fall from chair, initial encounter; Y92.239 Unspecified place in hospital as the place of occurrence of the external cause; F32.9 Major depressive disorder, single episode, unspecified; F60.89 Other specific personality disorders; Z88.6 Allergy status to analgesic agent; E78.5 Hyperlipidemia, unspecified; E11.40 Type 2 diabetes mellitus with diabetic neuropathy, unspecified; E86.0 Dehydration; F17.200 Nicotine dependence, unspecified, uncomplicated; Z88.8 Allergy status to other drugs, medicaments and biological substances
CPT/HCPCS: 36415; 70450; 71045; 80053; 81001; 82962; 83690; 83880; 84443; 84484; 85007; 85025; 87086; 93005; 93970; 99285; J1815; S5561